=== PATIENT | female | born 1975 | race African-American/Black ===

== ENCOUNTER 2022-08-05 19:01 | Emergency (ER) | payer MEDICAID, OTHER ==
[~2022-08-05] VITALS: Ht 167.6 cm; Wt 75.0 kg
[2022-08-05] MEDS ORDERED: ACET-2708 MT (22:54)
[2022-08-05 23:03] VITALS: BP 114/59
== END 2022-08-05 23:00 | disposition home or self-care (01) ==
LOC: ER 19:11
DX: S60.022A Contusion of left index finger without damage to nail, initial encounter (principal); S63.611A Unspecified sprain of left index finger, initial encounter; X58.XXXA Exposure to other specified factors, initial encounter; Y93.89 Activity, other specified; Y92.89 Other specified places as the place of occurrence of the external cause; Y99.8 Other external cause status; F12.10 Cannabis abuse, uncomplicated; Z98.890 Other specified postprocedural states; Z90.49 Acquired absence of other specified parts of digestive tract
CPT/HCPCS: 29130; 73130; 81025; 99283